=== PATIENT | female | born 1965 | race Caucasian/White ===

== ENCOUNTER 2019-10-12 10:53 | Outpatient (CLI) | payer BC, SELFPAY ==
[2019-10-12 20:43] LABS: SARS-CoV-2 RNA PCR Negative
== END 2019-10-12 10:54 ==
LOC: ANHCOVIDDT 03-05 10:54
PROVIDERS: Visit Provider Specialist
DX: Z01.812 Encounter for preprocedural laboratory examination (principal); Z20.828 Contact with and (suspected) exposure to other viral communicable diseases
CPT/HCPCS: 87635; C9803; U0003

== ENCOUNTER 2019-10-15 05:24 | Day surgery (SDC) | payer BC, SELFPAY ==
[2019-10-12 14:02] VITALS: BMI 41.2
[2019-10-15] VITALS (9 sets, daily range): BP systolic 102–149; BP diastolic 57–80; PULSE 49–70; RESP 12–16; TEMP 35.9–36.2; O2SAT 98–100
[2019-10-15 11:07] LABS: Basophils Percent Auto 0.3 % (0.2-1.2); Eosinophils Absolute Auto 0.1 K/mm3 (0-0.3); Eosinophils Percent Auto 1.3 % (0-4.4); Hematocrit 40.4 % (37.0-47.0); Hemoglobin 13.3 g/dL (12.0-15.0); Immature Granulocyte Absolute 0.02 K/mm3 (0.00-0.031); Immature Granulocyte Percent A 0.2 % (0-0.5); Lymphocytes Absolute Auto 3.04 K/mm3 (0.9-3.2); Lymphocytes Percent Auto 32.9 % (18.3-44.2); Mean Corpuscular HGB Conc 32.9 g/dl (32-36); Mean Corpuscular Hemoglobin 31.4 pg (26-34); Mean Corpuscular Volume 95.5 fl (80-100); Mean Platelet Volume 10.7 fl (7.4-10.4); Monocytes Absolute Auto 0.8 K/mm3 (0.1-0.6); Neutrophils Absolute Auto 5.2 K/mm3 (1.3-6.7); Neutrophils Percent Auto 56.3 % (45.5-73.1); Platelet Count Result 228 k/mm3 (150-375); Red Blood Count 4.23 M/mm3 (4.2-5.4); Red Cell Distribution Width 14.6 % (11.5-14.5); White Blood Count 9.2 K/mm3 (4.5-10.0)
[2019-10-15 11:18] LABS: Anion Gap 10.1 mmol/L (7-16); Blood Urea Nitrogen 17 mg/dL (7-17); Calcium 8.7 mg/dL (8.4-10.2); Carbon Dioxide 25 mmol/L (22-30); Chloride 107 mmol/L (98-107); Estimated CRCL calculation 98 ml/min; Estimated Glomerular Filt Rate > 60; Glucose 98 mg/dL (65-105); Potassium 4.1 mmol/L (3.4-5.0); Sodium 138 mmol/L (137-145)
--- NOTE | 2019-10-15 12:43 | PM.IMHP ---
H&P: HPI History of Present Illness Date/Time: 10/15/19 12:43 Chief complaint: Chest Pain Narrative: Danna Encarnacion is a 54 year old female With history of hypertension, history of dyslipidemia, and history of smoking is here for cardiac evaluation due to chest pain and abnormal stress test. She goes [facility], she had a stress test which was abnormal with anterior and apical ischemia, she is here for cardiac catheterization for definitive diagnosis of coronary disease PMFSH Social History Social History Years smoked: 20 Smoking status: Current every day smoker Tobacco type: cigarettes Second hand tobacco smoke exposure: No Substance use: never Living arrangements: with family Spiritual care concerns: No Meds Home Medications and Allergies Home Medications Medication Instructions Recorded Confirmed Type aspirin 81 mg PO DAILY 10/12/19 10/12/19 History digoxin 0.25 mcg PO DAILY 10/12/19 10/12/19 History duloxetine 30 mg PO DAILY 10/12/19 10/12/19 History hydrocodone-acetaminophen 1 tablet PO TID PRN 10/12/19 10/12/19 History isosorbide mononitrate 30 mg PO DAILY 10/12/19 10/12/19 History metoprolol succinate 100 mg PO DAILY 10/12/19 10/12/19 History pregabalin 200 mg PO BID 10/12/19 10/12/19 History Allergies Allergy/AdvReac Type Severity Reaction Status Date / Time No Known Allergies Allergy Verified 10/12/19 14:08 Vital Signs Vital Signs - 24 hr 10/15/19 11:11 Temperature 36.2 C L Pulse Rate 52 L Respiratory Rate 14 Blood Pressure 124/57 L Pulse Oximetry 98 Exam Narrative: Exam Narrative: Awake alert oriented x3 not in acute distress Neck is supple no obvious JVD, no carotid bruit Chest: Good air entry bilaterally, lungs are clear to auscultation and percussion bilaterally Cardiovascular: Regular rate and rhythm, 2/6 systolic murmur noted left sternal border Abdomen: Soft nontender bowel sounds positive Extremities: No edema has good pulses distally bilaterally H&P: Results Labs Labs: Short CBC 10/15/19 Range/Units 11:03 WBC 9.2 (4.5-10.0) K/mm3 Hgb 13.3 (12.0-15.0) g/dL Hct 40.4 (37.0-47.0) % Plt Count 228 (150-375) k/mm3 [facility] 10/15/19 11:03 Sodium 138 Potassium 4.1 Chloride 107 Carbon Dioxide 25 BUN 17 Creatinine 0.70 Glucose 98 Calcium 8.7 Assessment and Plan Assessment and plan (1) Abnormal stress electrocardiogram test: Code(s): R94.39 - Abnormal result of other cardiovascular function study Status: Acute Assessment and Plan: will plan cardiac catheterization. The procedure was discussed with the patient, risks, benefits, and alternative diagnostic measure was explained, patient agreed to the procedure (2) Atypical chest pain: Code(s): R07.89 - Other chest pain Status: Acute (3) Smoking: Code(s): F17.200 - Nicotine dependence, unspecified, uncomplicated Status: Acute (4) Dyslipidemia: Code(s): E78.5 - Hyperlipidemia, unspecified Status: Acute
--- NOTE | 2019-10-15 12:46 | WPDMODSED ---
Moderate Sedation Note-Pt Data Patient Data Allergies Allergy/AdvReac Type Severity Reaction Status Date / Time No Known Allergies Allergy Verified 10/12/19 14:08 Home Medications Medication Instructions Recorded Confirmed Type aspirin 81 mg PO DAILY 10/12/19 10/12/19 History digoxin 0.25 mcg PO DAILY 10/12/19 10/12/19 History duloxetine 30 mg PO DAILY 10/12/19 10/12/19 History hydrocodone-acetaminophen 1 tablet PO TID PRN 10/12/19 10/12/19 History isosorbide mononitrate 30 mg PO DAILY 10/12/19 10/12/19 History metoprolol succinate 100 mg PO DAILY 10/12/19 10/12/19 History pregabalin 200 mg PO BID 10/12/19 10/12/19 History Current Medications: Active Medications Sodium Chloride (Normal Saline Iv) 500 mls @ 100 mls/hr IV CONT .Q5H [facility] Sedation/Anesthesia: No previous sedation/anesthesia problems (including family history). PMFSH Social History Social History Years smoked: 20 Smoking status: Current every day smoker Tobacco type: cigarettes Second hand tobacco smoke exposure: No Substance use: never Living arrangements: with family Spiritual care concerns: No Mod Sed Physical Exam Physical Exam Pre Procedural Exam: Normal: Appearance, Eyes, Ears, Nose, Neck, Throat, Airway, Lungs, Heart Size, Heart Rate, Heart Rhythm, Neuro Exam, Abdomen, Liver, Kidneys, Spleen, Breasts, Genitalia, Extremities and Skin Hours since solid foods: 8 Hours since liquid intake: 8 Internal Medicine - PN: Obj Da Vital Signs Vital Signs: Vital Signs - 24 hr 10/15/19 11:11 Temperature 36.2 C L Pulse Rate 52 L Respiratory Rate 14 Blood Pressure 124/57 L Pulse Oximetry 98 Meds/Results Medications: Active Medications Generic Name Dose Route Start Last Admin Trade Name Freq PRN Reason Stop Dose Admin Sodium Chloride 500 mls @ 100 mls/hr 10/15/19 06:00 Normal Saline Iv IV CONT .Q5H [facility] Labs CBC & Chem 7: 10/15/19 11:03 10/15/19 11:03 Labs: Laboratory Results - last 24 hr 10/15/19 10/15/19 11:03 11:03 WBC 9.2 RBC 4.23 Hgb 13.3 Hct 40.4 MCV 95.5 MCH 31.4 MCHC 32.9 RDW 14.6 H Plt Count 228 MPV 10.7 H Immature Gran % (Auto) 0.2 Neut % (Auto) 56.3 Lymph % (Auto) 32.9 [place] % (Auto) 9.0 H Eos % (Auto) 1.3 Baso % (Auto) 0.3 Lymph # (Auto) 3.04 [place] # (Auto) 0.8 H Eos # (Auto) 0.1 Baso # (Auto) 0.0 Abs Immat Gran (auto) 0.02 Absolute Neuts (auto) 5.2 Absolute Nucleated RBC 0.0 Nucleated RBC % 0.0 Sodium 138 Potassium 4.1 Chloride 107 Carbon Dioxide 25 Anion Gap 10.1 BUN 17 Creatinine 0.70 Estim Creat Clear Calc 98 Estimated GFR > 60 Glucose 98 Calcium 8.7 ASA Classification/Sedation ASA Classification/Sedation ASA Class: II Risks: Risks, benefits and alternatives explained and patient/family accepted plan for sedation. Patient re-evaluated immediately prior to sedation.
--- NOTE | 2019-10-15 13:17 | P.PCNCC_ITS ---
Cardiac Cath Procedure Note Date of procedure:: 10/15/19 Performing physician:: Naga Joy Procedure: 1. Left heart catheterization, selective coronary angiogram. 2. Left ventricular angiogram. 3. Conscious sedation. starting time is 12:57 p.m. ending time is 1:09 p.m. using 1 mg Versed 25 mg fentanyl 4. Angio-Seal device for arterial hemostasis Email Marketing Executive: Dr. Naga Arita Complications: None. Sedation: Conscious sedation, local anesthesia, using 1 mg of Versed said, 25 mcg of fentanyl, and using 1% lidocaine for local anesthesia. Technique: After informed consent was obtained from patient, was brought to the director of cardiac cath lab, put in the director of cardiac cath lab table, prepped and draped in usual sterile fashion. Five Khmer sheath was inserted into the right common femoral artery, through the sheath 5 Khmer JL4 catheter inserted, advanced to the left coronary artery, left coronary artery angiogram was obtained. The catheter was exchanged over guidewire into a 5 Khmer JR4 catheter, advanced to the right coronary artery, right coronary artery angiogram was obtained. The catheter then was exchanged over guidewire into this 5 Khmer pigtail catheter, advanced to left ventricle, left ventricular angiogram was obtained. The catheter then was pulled, the sheath was pulled applying Angio-Seal device for arterial hemostasis. Patient tolerated the procedure no complication, taken from the director of cardiac cath lab to his room in stable condition stable vital signs. Hemodynamics: aortic pressure 126/60 . LV pressure 124/00 with LVEDP of 17 mmHg Angiographic findings: Left main: Medium size artery no significant disease or stenosis. Lad medium size artery showed mid irregularity but no major obstructive lesions Left circumflex artery, medium size artery, no significant disease or stenosis. RCA: Codominant vessel no major obstructive lesions noted LV: Normal size left ventricle with normal left ventricular systolic function. Summary: Mild coronary artery disease, normal left ventricular systolic function. Recommendation: Maximum medical treatment. Risk factor modification.
--- NOTE | 2019-10-15 15:41 | SUR.PHASEII ---
30/05/19: 1520: Patient up to bedside recliner. No bleeding or hematoma noted. Patient instructed on what signs and symptoms to look for and when to call the nurse. Call light and belongings are at bedside.
== END 2019-10-15 17:05 | disposition home or self-care (01) ==
PROVIDERS: Visit Provider Specialist
PROC: 4A023N7 Measurement of Cardiac Sampling and Pressure, Left Heart, Percutaneous Approach (ICD-10-PCS; CPT 93452; principal; 2019-10-15 12:00)
DX: I25.10 Atherosclerotic heart disease of native coronary artery without angina pectoris (principal); I10 Essential (primary) hypertension; E78.5 Hyperlipidemia, unspecified; F17.210 Nicotine dependence, cigarettes, uncomplicated; Z79.82 Long term (current) use of aspirin; Z79.899 Other long term (current) drug therapy
CPT/HCPCS: 36415; 80048; 85025; 93458; C1760; C1887; C1894; G0269; J1644; J2250; J3010; J7040